=== PATIENT | female | born 1995 | race Two or more races ===

== ENCOUNTER 2024-12-16 15:54 | Emergency (ER) | payer OTHER ==
[~2024-12-16] VITALS: Ht 160 cm; Wt 88.5 kg
--- NOTE | 2024-12-16 16:14 | ED.PDOC ---
Musculoskeletal HPI Comments 29 year old female presents to the ED with a chief complaint of RT shoulder pain onset today (12/16/2024) around 15:00. Patient states she was on a ski lift, when she slipped out, was holding on to the lift with RT arm. Patient is currently experiencing RT shoulder pain, believes she dislocated shoulder. LMP was 2 months ago, normal for patient due to irregular menstrual cycle, denies chances of . Denies any PMHx as well as LOC, headache, chest pain, shortness of breath, nausea, vomiting, dizziness. No other symptoms or modifying factors present at this time. Time Seen by MD: 16:06 Reviewed Notes: Medications, Allergies Allergies: Coded Allergies: NO KNOWN ALLERGIES (Unverified , 12/16/24) Information Source: Patient Mode of Arrival: Ambulatory Location: Right Extremity Location: Shoulder Timing: Hours Prehospital treatment: None Severity: Moderate Pain: Moderate Mechanism: Other Circumstances: Accident Onset of Symptoms: After Trauma Symptoms: Pain DVT Risk Factors: NONE Associated signs and symptoms: Shoulder pain Past Medical History PAST MEDICAL HISTORY: Denies Surgical History: Denies all surgeries LAWYER History: No Pertinent LAWYER History Family History Family History: Reviewed,noncontributory to illness, No family hx of Cancer, No family hx of DM, No family hx of Heart sherlyn, No family hx of HTN, No family hx ofKidney sherlyn, No family hx of Liver sherlyn, No family hx of Lung sherlyn, No family hx of Stroke Social History Smoker: Non-Smoker Alcohol: Denies ETOH Use Drugs: Denies Drug Use Lives In: Home Constitutional: denies: chills, diaphoresis, fatigue, fever, malaise, sweats, weakness, others EENTM: denies: blurred vision, double vision, ear bleeding, ear discharge, ear drainage, ear pain, ear ringing, eye pain, eye redness, hearing loss, mouth pain, mouth swelling, nasal discharge, nose bleeding, nose congestion, nose pain, photophobia, tearing, throat pain, throat swelling, voice changes, others Respiratory: denies: cough, hemoptysis, orthopnea, SOB at rest, shortness of breath, SOB with excertion, stridor, wheezing, others Cardiovascular: denies: chest pain, dizzy spells, diaphoresis, Dyspnea on exertion, edema, irregular heart beat, left arm pain, lightheadedness, palpitati ons, PND, syncope, others Gastrointestinal: denies: abdomen distended, abdominal pain, blood streaked bowels, constipated, diarrhea, dysphagia, difficulty swallowing, hematemesis, melena, nausea, poor appetite, poor fluid intake, rectal bleeding, rectal pain, vomiting, others Genitourinary: denies: abnormal vagina bleeding, burning, dyspareunia, dysuria, flank pain, frequency, hematuria, incontinence, pain, , vagina discharge, urgency, others Neurological: denies: dizziness, fainting, headache, left sided numbness, left sided weakness, numbness, paresthesia, pre-existing deficit, right sided numbness, right sided weakness, seizure, speech problems, tingling, tremors, weakness, others Musculoskeletal: reports: others (RT shoulder pain); denies: back pain, gout, joint pain, joint swelling, muscle pain, muscle stiffness, neck pain Integumetry: denies: bruises, change in color, change in hair/nails, dryness, laceration, lesions, lumps, rash, wounds, others Allergic/Immunocompromised: denies: Difficulty Healing, Frequent Infections, Hives, Itching, others Hematologic/Lymphatic: denies: anemia, blood clots, easy bleeding, easy bruising, swollen glands, others Endocrine: denies: excessive hunger, excessive sweating, excessive thirst, excessive urination, flushing, intolerance to cold, intolerance to heat, unexplained weight gain, unexplained weight loss, others Psychiatric: denies: anxiety, bipolar disorder, depression, hopeless, panic disorder, schizophrenia, sleepless, suicidal, others All Other Systems: Reviewed and Negative Physical Exam General Appearance: No Apparent Distress, Normal HEENT: Normal ENT Inspection, Pharynx Normal, TMs Normal Neck: Full Range of Motion, Non-Tender, Normal, Normal Inspection Respiratory: Chest Non-Tender, Lungs Clear, No Accessory Muscle Use, No Respiratory Distress, Normal Breath Sounds Cardiovascular: No Edema, No JVD, No Murmur, No Gallop, Normal Peripheral Pulses, Regular Rate/Rhythm Breast Exam: Deferred Gastrointestinal: No Organomegaly, Non Tender, No Pulsatile Mass, Normal Bowel Sounds, Soft Genitalia: Deferred Pelvic: Deferred Rectal: Deferred Extremities: No calf tenderness, Normal capillary refill, No pedal edema, Tender (RT shoulder tenderness), Other (no obvious deformity visualzed) Musculoskeletal : Apperance: Normal Neurologic: Alert, finished hardware erector II-XII nml as Tested, No Motor Deficits, Normal Affect, Normal Mood, No Sensory Deficits Cerebellar Function: Normal Reflexes: Normal Skin: Dry, Normal Color, Warm Lymphatic: No Adenopathy Was a procedure done? Was a procedure done?: Yes Sedation Sedation?: Yes Informed consent obtained: Yes Sedation start time: 17:25 Sedation end time: 17:35 Sedation total time: 10 mins Sedation provider statement: pt was well sedated and had no adverse effects. Reduction Indication: Dislocation Sedation: Consents obtained, Sedation as ordered Intra-articular anesthetic pamela: No Post-reduction x-ray show: Reduction, Good Alignment Informed consent obtained: Yes Risks/benefits/alt described: Yes Notes pt tolerated procedure well, with traction, counter traction, with dislocation easily reduced without complications and with intact neurosensory functions before and after procedure Other Procedure Notes sling applied to right shoulder after reduction Differential Diagnosis EXT Differential Diagnosis: Fracture, Sprain, Dislocation, Contusion, Strain X-Ray, Labs, Meds, VS Vital Signs Date Time Temp Pulse Resp B/P (MAP) Pulse Ox O2 Delivery O2 Flow Rate FiO2 12/16/24 18:00 61 16 115/72 (86) 100 12/16/24 17:45 54 16 116/74 (88) 100 12/16/24 17:40 59 16 118/74 (89) 100 12/16/24 17:35 58 12 129/74 (92) 100 12/16/24 17:30 60 12 120/72 (88) 100 12/16/24 17:28 60 19 99 3.0 32 60 10 100 61 100 12/16/24 17:25 60 12 120/71 (87) 100 12/16/24 17:20 72 22 117/64 (81) 100 12/16/24 17:15 64 22 113/70 (84) 100 12/16/24 17:00 61 22 112/69 (83) 100 12/16/24 16:56 64 22 99 Room Air* 0 21 12/16/24 16:54 98.1 63 21 113/73 (86) 99 98.1 12/16/24 16:32 63 12/16/24 16:13 97.5 62 18 107/74 (85) 100 Current Medications Medications (Trade) Dose Ordered Sig/Destiny Route Start Time Stop Time Status Last Admin Etomidate 10 mg ONCE ONCE IV 12/16/24 16:45 12/16/24 17:10 DC 12/16/24 17:[address] [address] Ph: [phone] DIAGNOSTIC IMAGING Diagnostic Imaging Report : [id number] Signed PATIENT: EVGENY CASTRO ACCT: [id number] UNIT: [id number] : 1995 LOC: ER ROOM / BED: / AGE / SEX: 29 / F ADM STATUS: REG ER SERVICE 1608 ORDERING PHYSICIAN: NORI NOBLE MD PROCEDURE(s): RSHD2 - R SHOULDER 2+ VIEW XRAY REASON: INJURY ORDER NUMBER(s): [id number], ACCESSION NUMBER(s): [id number] CLINICAL INDICATION: INJURY TECHNIQUE: 2 radiographic views of the right shoulder were obtained. Comparison: None FINDINGS/IMPRESSION: Anterior dislocation right humerus The visualized joint space is well maintained. The alignment is anatomical. There is no radiopaque foreign body. ATED BY: HARIKA BRAND Jr., DO DICTATED DATE/TIME: 12/16/241636 SIGNED BY: HARIKA BRAND Jr., SIGNED DATE/TIME: 12/16/241636 CC: Time of 1ST Reevaluation: 16:36 Reevaluation 1ST: Unchanged Time of 2ND Reevaluation: 18:45 Reevaluation 2ND: Resolved Patient Education/Counseling: Diagnosis, Treatment, Prognosis, Need For Follow Up Family Education/Counseling: Diagnosis, Treatment, Prognosis, Need For Follow U p Additional Information - The following tests were ordered, and results were reviewed by me: R SHOULDER 2+ VIEW XRAY - I reviewed and agreed with the following test results read by other provider: R SHOULDER 2+ VIEW XRAY - I discussed treatments and results with medical personnel and: patient, friends pt suffered an anterior right shoulder dislocation, which was successfully reduced. she has a hill Sach's deformity, otherwise without any neurovascular symptoms Departure 1 Departure Time of Disposition: 18:46 Impression: Primary Impression: Anterior shoulder dislocation Qualified Codes: S43.014A - Anterior dislocation of right humerus, initial encounter Additional Impression: Hill Sachs deformity, right Disposition: HOME / SELF CARE / HOMELESS Condition: Good Additional Instructions: use sling for 72 hours then start early range of motion exercises. follow up with your doctor on Wednesday e-Prescriptions Ibuprofen Micronized (MOTRIN TABLET) 600 Mg Tb 600 MG PO TID PRN, #40 TAB *Black box warning-NSAIDS can increase risk of PR & hypertension, GI irritation, ulceration, bleed, perferation. Do not use post cardiac surgery. Use short duration/lowest effective dose. Prov: NORI NOBLE MD 12/16/24 Discharged With: Self, Friend Critical Care Note Critical Care Time?: No Stability Stability form required: No I personally scribed for NORI NOBLE MD ([email or web address]) on 12/16/24 at 16:14. Electronically submitted by Johanna Davis ([email or web address]). I personally scribed for NORI NOBLE MD ([email or web address]) on 12/16/24 at 16:23. Electronically submitted by Johanna Davis ([email or web address]). I personally scribed for NORI NOBLE MD ([email or web address]) on 12/16/24 at 16:54. Electronically submitted by Johanna Davis ([email or web address]). NORI NOBLE MD Dec 16, 2024 16:14
--- NOTE | 2024-12-16 16:39 | DVH ---
CLINICAL INDICATION: INJURY TECHNIQUE: 2 radiographic views of the right shoulder were obtained. Comparison: None FINDINGS/IMPRESSION: Anterior dislocation right humerus The visualized joint space is well maintained. The alignment is anatomical. There is no radiopaque foreign body.
[2024-12-16 16:56] VITALS: PULSE 64; RESP 22; O2SAT 99
[2024-12-16] MEDS: ETOMIDATE (2MG/ML) 20ML VIAL IV ONE (17:25)
--- NOTE | 2024-12-16 18:25 | DVH ---
CLINICAL INDICATION: post close reduction right shoulder TECHNIQUE: 1 radiographic views of the right shoulder were obtained. Comparison: XY R SHOULDER 2+ VIEW XRAY on DOS: 12/16/24 FINDINGS/IMPRESSION: There is no evidence of acute fracture or dislocation. Possible bony deformity greater tuberosity may represent a Hill-Sachs deformity. Bony alignment appears normal. The visualized joint space is well maintained. The alignment is anatomical. There is no radiopaque foreign body.
[2024-12-16] MEDS ORDERED: IBU600T PO (18:48)
[2024-12-16 19:00] VITALS: BP 123/54; PULSE 75; RESP 16; TEMP 98.3; O2SAT 100
== END 2024-12-16 19:34 | disposition home or self-care (01) ==
LOC: ER 15:54
DX: S43.084A Other dislocation of right shoulder joint, initial encounter (principal); X50.0XXA Overexertion from strenuous movement or load, initial encounter; X50.9XXA Other and unspecified overexertion or strenuous movements or postures, initial encounter; Y93.89 Activity, other specified; Y92.89 Other specified places as the place of occurrence of the external cause; Y99.8 Other external cause status
CPT/HCPCS: 23650; 73020; 73030; 99151; 99152; 99153